=== PATIENT | female | born 1980 | race Two or more races ===

== ENCOUNTER 2017-11-13 02:25 | Emergency (ER) | payer OTHER ==
[~2017-11-13] VITALS: Ht 167.6 cm; Wt 90.9 kg
[2017-11-13 02:54] VITALS: BP 98/52
== END 2017-11-13 03:42 | disposition left against medical advice (07) | DRG 552 ==
LOC: ED 02:25
DX: M54.9 Dorsalgia, unspecified (principal); F17.210 Nicotine dependence, cigarettes, uncomplicated; O99.332 Smoking (tobacco) complicating pregnancy, second trimester; Z3A.16 16 weeks gestation of pregnancy; V49.50XA Passenger injured in collision with unspecified motor vehicles in traffic accident, initial encounter; Z91.19 Patient's noncompliance with other medical treatment and regimen

== ENCOUNTER 2017-11-16 16:41 | Emergency (ER) | payer OTHER ==
[~2017-11-16] VITALS: Ht 167.6 cm; Wt 96.8 kg
[2017-11-16 18:13] LABS: HEMATOCRIT 34.2 % (37.0-47.0); HEMOGLOBIN 11.2 g/dl (12.0-16.0); IMMATURE GRANULOCYTES 0.8 % (0.0-1.0); MEAN CELL VOLUME 89.8 fL CALC (80.0-100.0); MEAN CORPUSCULAR HGB 29.4 pG CALC (26.0-32.0); MEAN CORPUSCULAR HGB CONC 32.7 g/L CALC (32.0-36.0); NEUT# 8.34 thou/uL (2.00-7.15); RED BLOOD COUNT 3.81 mill/uL (4.20-5.60); RED CELL DISTRI WIDTH 13.2 % (11.5-15.5)
[2017-11-16 18:13] LABS: URINE BILIRUBIN - DIPSTICK NEGATIVE (NEGATIVE); URINE BLOOD DIPSTICK NEGATIVE (NEGATIVE); URINE COLOR YELLOW; URINE GLUCOSE - DIPSTICK NEGATIVE (NEGATIVE); URINE KETONE TRACE mg/dL (NEGATIVE); URINE LEUK ESTERASE NEGATIVE (NEGATIVE); URINE NITRITE - DIPSTICK NEGATIVE (Negative); URINE PROTEIN - DIPSTICK NEGATIVE (NEG-TRACE); URINE SPECIFIC GRAVITY >=1.030; URINE UROBILINOGEN - DIPSTICK 0.2 E.U./dL (0.2)
[2017-11-16 18:16] LABS: URINE CLARITY CLEAR
[2017-11-16 18:30] LABS: ALBUMIN 3.8 g/dL (3.2-5.0); ALKALINE PHOSPHATASE 40 u/l (38-126); ANION GAP 15 (6-22 (CALC)); BILIRUBIN, TOTAL 0.2 mg/dL (0.0-1.4); BUN 9 mg/dL (7-17); BUN/CREATININE RATIO 16 (12-20 (CALC)); CARBON DIOXIDE 23 mmol/l (22-30); CHLORIDE 105 mmol/l (95-108); CREATININE 0.6 mg/dL (0.5-1.0); GFR > 60 ML/MIN (>=60 (CALC)); GFR FOR AFR.AMER. > 60 ML/MIN (>=60 (CALC)); POTASSIUM 3.9 mmol/l (3.5-5.1); SGOT/AST 18 u/l (14-36); SGPT/ALT 20 u/l (9-52); SODIUM 139 mmol/l (137-146); TOTAL PROTEIN 6.7 g/dL (6.3-8.2)
[2017-11-16] MEDS ORDERED: PREVACID30 M1 PO (19:37)
[2017-11-16] MEDS ORDERED: ZOFRAN ODT4 MG PO (19:37)
[2017-11-16] MEDS ORDERED: BENADRY2 EX (19:38)
[2017-11-16 19:50] VITALS: BP 124/62
== END 2017-11-16 19:50 | disposition home or self-care (01) | DRG 781 ==
LOC: ED 16:41
PROVIDERS: Emergency Medicine
DX: O99.611 Diseases of the digestive system complicating pregnancy, first trimester (principal); K25.9 Gastric ulcer, unspecified as acute or chronic, without hemorrhage or perforation; O99.711 Diseases of the skin and subcutaneous tissue complicating pregnancy, first trimester; L25.9 Unspecified contact dermatitis, unspecified cause; O99.331 Smoking (tobacco) complicating pregnancy, first trimester; F17.210 Nicotine dependence, cigarettes, uncomplicated; Z3A.12 12 weeks gestation of pregnancy

== ENCOUNTER 2018-01-06 15:54 | Emergency (ER) | payer SELFPAY ==
[~2018-01-06] VITALS: Ht 167.6 cm; Wt 95.0 kg
[~2018-01-06 15:54] MED LIST: BENADRY2 EX; PREVACID30 M1 PO; ZOFRAN ODT4 MG PO
[2018-01-06 16:00] VITALS: BP 103/57
[2018-01-06 16:36] LABS: URINE BILIRUBIN - DIPSTICK NEGATIVE (NEGATIVE); URINE BLOOD DIPSTICK NEGATIVE (NEGATIVE); URINE COLOR YELLOW; URINE GLUCOSE - DIPSTICK NEGATIVE (NEGATIVE); URINE KETONE NEGATIVE (NEGATIVE); URINE LEUK ESTERASE NEGATIVE (NEGATIVE); URINE NITRITE - DIPSTICK NEGATIVE (Negative); URINE PH 7.5 (4.5-8.0); URINE PROTEIN - DIPSTICK NEGATIVE (NEG-TRACE); URINE SPECIFIC GRAVITY 1.015; URINE UROBILINOGEN - DIPSTICK 0.2 E.U./dL (0.2)
[2018-01-06 16:37] LABS: HEMATOCRIT 32.4 % (37.0-47.0); HEMOGLOBIN 10.4 g/dl (12.0-16.0); IMMATURE GRANULOCYTES 1.3 % (0.0-1.0); MEAN CELL VOLUME 90.3 fL CALC (80.0-100.0); MEAN CORPUSCULAR HGB CONC 32.1 g/L CALC (32.0-36.0); NEUT# 5.94 thou/uL (2.00-7.15); RED BLOOD COUNT 3.59 mill/uL (4.20-5.60); RED CELL DISTRI WIDTH 13.1 % (11.5-15.5)
[2018-01-06 16:40] LABS: URINE CLARITY CLEAR
[2018-01-06 16:58] LABS: ALBUMIN 3.2 g/dL (3.2-5.0); ALKALINE PHOSPHATASE 47 u/l (38-126); ANION GAP 13 (6-22 (CALC)); BILIRUBIN, TOTAL 0.3 mg/dL (0.0-1.4); BUN 6 mg/dL (7-17); BUN/CREATININE RATIO 13 (12-20 (CALC)); CARBON DIOXIDE 25 mmol/l (22-30); CHLORIDE 104 mmol/l (95-108); CREATININE 0.4 mg/dL (0.5-1.0); GFR > 60 ML/MIN (>=60 (CALC)); GFR FOR AFR.AMER. > 60 ML/MIN (>=60 (CALC)); POTASSIUM 3.8 mmol/l (3.5-5.1); SGOT/AST 19 u/l (14-36); SGPT/ALT 34 u/l (9-52); SODIUM 138 mmol/l (137-146); TOTAL PROTEIN 6.4 g/dL (6.3-8.2)
[2018-01-06] MEDS ORDERED: PRENATAL MULTI1 CAP PO (17:02)
== END 2018-01-06 17:23 | disposition home or self-care (01) | DRG 781 ==
LOC: ED 15:54
PROVIDERS: Emergency Medicine
DX: O26.892 Other specified pregnancy related conditions, second trimester (principal); R10.9 Unspecified abdominal pain; F17.210 Nicotine dependence, cigarettes, uncomplicated; O99.332 Smoking (tobacco) complicating pregnancy, second trimester; Z3A.22 22 weeks gestation of pregnancy